=== PATIENT | male | born 1970 | race Caucasian/White ===

== ENCOUNTER 2022-08-31 10:25 | Day surgery (SDC) | payer OTHER ==
[~2022-08-31] VITALS: Ht 188 cm; Wt 88.5 kg
[2022-08-31] MEDS ORDERED: PROPOFOL 200MG/ 20ML VIAL (DIPRIVAN) IV ONE (12:13)
[2022-08-31] MEDS ORDERED: NS IRRIG SOLN 1000 ML IR ONE (12:13)
[2022-08-31] MEDS ORDERED: fentaNYL CITRATE/PF 100 MCG/2 ML AMP ONE (12:13)
[2022-08-31] MEDS ORDERED: LR 1,000 ML IV.SOLN IV ONE (12:13)
[2022-08-31] MEDS ORDERED: MIDAZOLAM HCL 5 MG/ML VIAL (VERSED) IV ONE (12:13)
[2022-08-31] MEDS ORDERED: IPRATROPIUM/ALBUTEROL SULFATE 3 ML AMPUL.NEB (DUONEB) INH ONE (12:30)
[2022-08-31 13:55] VITALS: BP_SYST 122
== END 2022-08-31 13:00 | disposition home or self-care (01) ==
LOC: SDS 10:25 → SMU 10:27 → SDS 13:00
PROVIDERS: ATTEND Internal Medicine
DX: R13.10 Dysphagia, unspecified (principal); K22.2 Esophageal obstruction; J45.909 Unspecified asthma, uncomplicated; K21.9 Gastro-esophageal reflux disease without esophagitis; Z79.899 Other long term (current) drug therapy; Z20.822 Contact with and (suspected) exposure to COVID-19
CPT/HCPCS: 36415; 43249; 43239; 93005; 94640; 88305; 88312; 88313; U0003; G0378; J2250; J2704; J3010; J7120